=== PATIENT | male | born 1995 | race American Indian/Alaskan Native ===

== ENCOUNTER 2017-11-10 00:37 | Emergency (ER) | payer SELFPAY ==
[2017-11-10 01:07] VITALS: BP 131/84
[2017-11-10] MEDS ORDERED: NACL 0.9% 500 ML IR ONE (04:21)
[2017-11-10] MEDS ORDERED: DELTASONE PO ONE (07:39)
--- NOTE | 2017-11-10 07:41 | Emergency Department Report ---
HPI - General Chief Complaint: Upper Respiratory Infection Time Seen by Provider: 11/10/17 07:35 - HPI HPI: A 21-year-old male with no prior medical history presents to ED complaining of feeling sick for the past 3-4 days. Patient states he has sore throat. Patient states he is able to eat and swallow really without any problems. 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 Patient denies fever/cough/runny nose/abdominal pain/chest pain/ shortness of breath or any other problems. ED Past Medical Hx - Past Medical History Previous Medical History?: Yes Hx Psychiatric Treatment: Yes (Bipolar, ADHD) - Surgical History Past Surgical History?: No - Social History Smoking Status: Never Smoker Substance Use Type: None - Medications Home Medications: Home Medications Medication Instructions Recorded Confirmed Last Taken Type Acetaminophen/Codeine [Tylenol #3] 1 tab PO Q6H PRN #14 tab 03/11/14 Unknown Rx Azithromycin [Zithromax Z-GLADIS] 250 mg PO DAILY #6 tablet 03/11/14 Unknown Rx predniSONE [Deltasone] 50 mg PO QDAY #3 tab 03/11/14 Unknown Rx Ibuprofen [Motrin] 800 mg PO Q8HR PRN #30 tablet 11/10/17 Unknown Rx ED Review of Systems ROS: Stated complaint: COLD SX Other details as noted in HPI Constitutional: denies: chills, fever Eyes: denies: eye pain, eye discharge, vision change ENT: denies: ear pain, throat pain Respiratory: denies: cough, shortness of breath, wheezing Cardiovascular: denies: chest pain, palpitations Endocrine: no symptoms reported Gastrointestinal: vomiting (2 episodes yesterday, ). denies: abdominal pain, nausea, diarrhea Genitourinary: denies: urgency, dysuria, frequency, hematuria, discharge Musculoskeletal: denies: back pain, joint swelling, arthralgia, myalgia Skin: denies: rash, lesions, pruritus Neurological: denies: headache, weakness, numbness, paresthesias, confusion Psychiatric: denies: anxiety, depression Hematological/Lymphatic: denies: easy bleeding, easy bruising Physical Exam - Physical Exam Vital Signs: Vital Signs 11/10/17 01:02 Temperature 97.8 F Pulse Rate 73 Respiratory 16 Rate Blood Pressure 131/84 O2 Sat by Pulse 98 Oximetry Physical Exam: GENERAL: Alert and oriented x3, no apparent distress, Normal Gait, atraumatic. HEAD: Head is normocephalic and a-traumatic. EYES: Extra ocular muscles are intact. Pupils are equal, round, and reactive to light and accommodation. EARS: symetrical, atraumatic, non tender, ear canal clear and moderate cerumen, tympanic membrance non inflamed. gross auditory nml bilaterally. NOSE: Nose symetrical, Nontender,Nares appeared normal. MOUTH:Mouth is well hydrated and without lesions. Tonsils nonerythematous or swollen, Uvula midline, Tongue not elevated. Mucous membranes are moist. Posterior pharynx clear, no exudate or lesions. Patent airways. NECK: Supple. Non edematous, No lymphadenopathy or thyromegaly. No C-spine tenderness LUNGS: Symetrical with respiration, No wheezing, no rales or crackles, CTAB. HEART: S1, S2 present, regular rate and rhythm without murmur, no rubs, no gallops. Non tender to palpation NEUROLOGIC: The patient is cooperative with no focal neurologic deficits. . Normal speech. Normal sensation in bilateral upper and lower extremities, No loss of sensation, SKIN: Warm and dry, No lesions, No ulceration or induration present. ED Course Vital Signs 11/10/17 01:02 Temperature 97.8 F Pulse Rate 73 Respiratory 16 Rate Blood Pressure 131/84 O2 Sat by Pulse 98 Oximetry ED Medical Decision Making - Medical Decision Making 21-year-old male presents with flulike symptoms. no fever during the ED stay. Discussed with symptomatic relief with [id number] medications. Discussed continue Tylenol and Motrin as needed for fever and pain. Discussed increase fluids and diet intake. Discussed rest much needed. Discussed daily vitamin C for immune booster. Discussed follow-up with senior programmer in 3-5 days. Patient's mother verbally states she understands and will comply the following instructions and follow-up Vital signs stable. Patient is in no acute distress Critical care attestation.: If time is entered above; I have spent that time in minutes in the direct care of this critically ill patient, excluding procedure time. ED Disposition Clinical Impression: URI (upper respiratory infection) Qualifiers: URI type: unspecified URI Qualified Code(s): J06.9 - Acute upper respiratory infection, unspecified Disposition: DC-01 TO HOME OR SELFCARE Is pt being admited?: No Does the pt Need Aspirin: No Condition: Stable Instructions: Upper Respiratory Infection (ED) Additional Instructions: Make sure to follow up with the primary care physician as discussed. Take all your medications as you've been prescribed. If you have any worsening symptoms or develop new symptoms please return to ED immediately. Get some appropriate rashes. Make sure keep hydrated, increase fluids. Prescriptions: Ibuprofen [Motrin] 800 mg PO Q8HR PRN #30 tablet PRN Reason: Pain Referrals: PRIMARY CARE,MD [Primary Care Provider] - 3-5 Days [facility] [Outside] - 3-5 Days [facility] [Outside] - 3-5 Days Forms: Work/School Release Form(ED) Time of Disposition: 07:41
== END 2017-11-10 07:56 | disposition home or self-care (01) ==
LOC: ED 00:37
DX: J06.9 Acute upper respiratory infection, unspecified (principal)
CPT/HCPCS: 99282; J7512

== ENCOUNTER 2018-02-05 20:52 | Emergency (ER) | payer SELFPAY ==
[2018-02-05 21:23] VITALS: BP 138/76
== END 2018-02-06 03:31 | disposition left against medical advice (07) ==
LOC: ED 20:52
DX: R50.9 Fever, unspecified (principal); H57.8 Other specified disorders of eye and adnexa; Z53.21 Procedure and treatment not carried out due to patient leaving prior to being seen by health care provider

== ENCOUNTER 2018-03-26 23:10 | Emergency (ER) | payer SELFPAY ==
[2018-03-27 02:54] LABS: Basophils % (Auto) 0.3 % (0.0-1.8); Eosinophils # (Auto) 0.2 K/mm3 (0.0-0.4); Eosinophils % (Auto) 2.5 % (0.0-4.3); Hemoglobin 14.7 gm/dl (11.8-15.2); Lymphocytes # (Auto) 2.7 K/mm3 (1.2-5.4); Lymphocytes % (Auto) 28.3 % (13.4-35.0); Mean Corpuscular HGB Conc 35 % (32-34); Mean Corpuscular Hemoglobin 30 pg (28-32); Mean Corpuscular Volume 87 fl (84-94); Monocytes # (Auto) 0.7 K/mm3 (0.0-0.8); Monocytes % (Auto) 7.1 % (0.0-7.3); Platelet Count 228 K/mm3 (140-440); Red Blood Count 4.84 M/mm3 (3.65-5.03); Red Cell Distribution Width 13.4 % (13.2-15.2)
[2018-03-27 03:02] LABS: BUN/Creatinine Ratio 18; Blood Urea Nitrogen 16 mg/dL (9-20); Calcium 9.2 mg/dL (8.4-10.2); Hemolysis Index 7
--- NOTE | 2018-03-27 10:21 | Emergency Department Report ---
ED Abdominal Pain HPI - General Chief Complaint: Abdominal Pain Stated Complaint: CONSTIPATION,BLOOD IN STOOL Time Seen by Provider: 03/27/18 10:12 Source: patient Mode of arrival: Ambulatory Limitations: No Limitations - History of Present Illness Initial Comments: Patient is 22 years old male with no significant past medical history. Patient presented to the ER complaining off abdominal pain crampy in nature associated with constipation and sometimes diarrhea. He stated that he will have some blood sometimes and the stool. Patient denied any fever, nausea or vomiting. Patient denied any loss of weight. No other complaint. MD Complaint: abdominal pain -: week(s) Location: diffuse Radiation: none Migration to: no migration Severity: moderate Severity scale (0 -10): 5 Quality: cramping Associated Symptoms: denies other symptoms - Related Data Previous Rx's Medication Instructions Recorded Last Taken Type Acetaminophen/Codeine [Tylenol #3] 1 tab PO Q6H PRN #14 tab 03/11/14 Unknown Rx Azithromycin [Zithromax Z-GLADIS] 250 mg PO DAILY #6 tablet 03/11/14 Unknown Rx predniSONE [Deltasone] 50 mg PO QDAY #3 tab 03/11/14 Unknown Rx Ibuprofen [Motrin] 800 mg PO Q8HR PRN #30 tablet 11/10/17 Unknown Rx Allergies Allergy/AdvReac Type Severity Reaction Status Date / Time Penicillins Allergy Vomiting Verified 03/11/14 12:04 ED Review of Systems ROS: Stated complaint: CONSTIPATION,BLOOD IN STOOL Other details as noted in HPI Comment: All other systems reviewed and negative Constitutional: denies: chills, fever Respiratory: denies: shortness of breath Cardiovascular: denies: chest pain, palpitations, dyspnea on exertion Gastrointestinal: abdominal pain. denies: nausea, vomiting, diarrhea, constipation, hematemesis, melena, hematochezia Neurological: denies: headache, weakness, numbness, paresthesias, confusion, abnormal gait ED Past Medical Hx - Past Medical History Hx Psychiatric Treatment: Yes (Bipolar, ADHD) Additional medical history: Chronic episodes of diarrhea and constipation since age 12. - Surgical History Past Surgical History?: No - Social History Smoking Status: Never Smoker Substance Use Type: None - Medications Home Medications: Home Medications Medication Instructions Recorded Confirmed Last Taken Type Acetaminophen/Codeine [Tylenol #3] 1 tab PO Q6H PRN #14 tab 03/11/14 Unknown Rx Azithromycin [Zithromax Z-GLADIS] 250 mg PO DAILY #6 tablet 03/11/14 Unknown Rx predniSONE [Deltasone] 50 mg PO QDAY #3 tab 03/11/14 Unknown Rx Ibuprofen [Motrin] 800 mg PO Q8HR PRN #30 tablet 11/10/17 Unknown Rx ED Physical Exam - General Limitations: No Limitations General appearance: alert, in no apparent distress - Head Head exam: Present: atraumatic, normocephalic, normal inspection - Eye Eye exam: Present: normal appearance, PERRL. Absent: scleral icterus - ENT ENT exam: Present: normal exam, normal orophraynx, mucous membranes moist, TM's normal bilaterally - Neck Neck exam: Present: normal inspection - Respiratory Respiratory exam: Present: normal lung sounds bilaterally. Absent: respiratory distress, wheezes, rales, rhonchi, chest wall tenderness, accessory muscle use, decreased breath sounds, prolonged expiratory - Cardiovascular Cardiovascular Exam: Present: regular rate, normal rhythm, normal heart sounds - GI/Abdominal GI/Abdominal exam: Present: soft, normal bowel sounds. Absent: distended, tenderness, guarding, rebound, rigid, organomegaly, mass, bruit, pulsatile mass , hernia - Extremities Exam Extremities exam: Present: normal inspection, full ROM, normal capillary refill - Back Exam Back exam: Present: normal inspection, full ROM. Absent: tenderness, CVA tenderness (R), CVA tenderness (L), muscle spasm, paraspinal tenderness, vertebral tenderness - Neurological Exam Neurological exam: Present: alert, oriented X3, CN II-XII intact, normal gait - Skin Skin exam: Present: warm, intact, normal color ED Course Vital Signs 03/26/18 03/27/18 03/27/18 23:29 02:20 05:22 Temperature 98.1 F 98.1 F 97.6 F Pulse Rate 74 71 62 Respiratory 18 18 18 Rate Blood Pressure 117/74 117/74 120/77 O2 Sat by Pulse 97 98 100 Oximetry ED Medical Decision Making - Lab Data Result diagrams: 03/27/18 02:38 03/27/18 02:38 - Radiology Data Radiology results: report reviewed Acute abdomen x-rays showed no acute finding. - Medical Decision Making I discussed with the patient the possibility of inflammatory bowel disease given the history that he presented with. I advised him to follow-up with primary care physician for possible GI referral. Patient understood the instructions very well and he stated that he will follow up as a primary care physician. Critical care attestation.: If time is entered above; I have spent that time in minutes in the direct care of this critically ill patient, excluding procedure time. ED Disposition Clinical Impression: Abdominal pain, GI bleed Disposition: - TO HOME OR SELFCARE Is pt being admited?: No Condition: Stable Instructions: Abdominal Pain (ED), Rectal Bleeding (ED) Referrals: FABRICE DOMINGO MD [Staff Physician] - 3-5 Days
[2018-03-27 10:46] VITALS: BP 135/93
--- NOTE | 2018-03-28 14:29 | XRay Report ---
FINAL REPORT PROCEDURE: XR ABDOMEN 2V TECHNIQUE: Abdominal series, including supine and upright AP views. HISTORY: constipation COMPARISON: No prior studies are available for comparison. FINDINGS: Bowel gas pattern:Nonobstructive . Masses or calcifications:None . Bony structures:No significant abnormality . Pneumoperitoneum:None . Other:No significant findings . IMPRESSION: No acute abnormality.
== END 2018-03-27 10:48 | disposition home or self-care (01) ==
LOC: ED 23:10
DX: K92.2 Gastrointestinal hemorrhage, unspecified (principal); F31.9 Bipolar disorder, unspecified; Z88.0 Allergy status to penicillin
CPT/HCPCS: 36415; 74019; 80048; 85025

== ENCOUNTER 2018-05-01 21:25 | Emergency (ER) | payer OTHER ==
[2018-05-01] MEDS ORDERED: ZOFRAN ONE (21:46)
[2018-05-01] MEDS ORDERED: ZOFRAN IV ONE (22:31)
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
[2018-05-02 00:41] VITALS: BP 120/80
== END 2018-05-02 01:40 | disposition other institution (70) ==
LOC: ED 21:25
DX: S02.81XA Fracture of other specified skull and facial bones, right side, initial encounter for closed fracture (principal); S06.300A Unspecified focal traumatic brain injury without loss of consciousness, initial encounter; F31.9 Bipolar disorder, unspecified; Z88.0 Allergy status to penicillin; Y04.0XXA Assault by unarmed brawl or fight, initial encounter; Y93.89 Activity, other specified; Y92.89 Other specified places as the place of occurrence of the external cause; Y99.8 Other external cause status
CPT/HCPCS: 70450; 70486; 96374; 99291; J2405

== ENCOUNTER 2020-04-02 02:44 | Emergency (ER) | payer SELFPAY ==
[2020-04-02 02:55] VITALS: BP 150/90
== END 2020-04-02 03:57 | disposition left against medical advice (07) ==
LOC: ED 02:44
DX: R30.0 Dysuria (principal); R36.9 Urethral discharge, unspecified
CPT/HCPCS: 99282

== ENCOUNTER 2021-02-20 15:40 | Emergency (ER) | payer SELFPAY ==
[2021-02-20 16:09] VITALS: BP 132/81
--- NOTE | 2021-02-20 17:15 | Emergency Department Report ---
ED ENT HPI - General Chief complaint: Sore Throat Stated complaint: SORE THROAT, NASAL ISSUES Time Seen by Provider: 02/20/21 16:15 Source: patient Mode of arrival: Ambulatory Limitations: No Limitations - History of Present Illness Initial comments: This is a 25-year-old male nontoxic, well nourished in appearance, no acute signs of distress presents to the ED with c/o of sore throat, nasal congestion, rhinorrhea and frontal sinus pain times several days. Patient describes sore throat as swallowing razer blades. Patient denies any fever, chills, headache, stiff neck, nausea, vomiting, chest pain, shortness of breath, numbness or tingling. Patient denies any drooling or hoarseness. Patient stated allergies to penicillin. Denies any significant past medical history. MD complaint: sore throat, other (Rhinorrhea, nasal congestion, sinus pain) -: days(s) Location: throat Severity: mild Severity scale (0 -10): 8 Quality: aching Consistency: constant Improves with: none Worsens with: swallowing Associated Symptoms: pain with swallowing, sore throat. denies: fever, cough, gum swelling, toothache, tinnitus, hearing loss, discharge from ear, rhinorrhea - Related Data Previous Rx's Medication Instructions Recorded Last Taken Type Azithromycin [Zithromax Z-GLADIS] 250 mg PO DAILY #6 tablet 02/20/21 Unknown Rx Fluticasone Furoate [Flonase 15.8 ml NS DAILY #1 spray.susp 02/20/21 Unknown Rx Sensimist] Loratadine [Claritin] 10 mg PO DAILY #30 tablet 02/20/21 Unknown Rx Allergies Allergy/AdvReac Type Severity Reaction Status Date / Time Penicillins Allergy Vomiting Verified 03/11/14 12:04 ED Dental HPI - General Chief complaint: Sore Throat Stated complaint: SORE THROAT, NASAL ISSUES Time Seen by Provider: 02/20/21 16:15 Source: patient Mode of arrival: Ambulatory Limitations: No Limitations - Related Data Previous Rx's Medication Instructions Recorded Last Taken Type Azithromycin [Zithromax Z-GLADIS] 250 mg PO DAILY #6 tablet 02/20/21 Unknown Rx Fluticasone Furoate [Flonase 15.8 ml NS DAILY #1 spray.susp 02/20/21 Unknown Rx Sensimist] Loratadine [Claritin] 10 mg PO DAILY #30 tablet 02/20/21 Unknown Rx Allergies Allergy/AdvReac Type Severity Reaction Status Date / Time Penicillins Allergy Vomiting Verified 03/11/14 12:04 ED Review of Systems ROS: Stated complaint: SORE THROAT, NASAL ISSUES Other details as noted in HPI Comment: All other systems reviewed and negative Constitutional: denies: chills, fever Eyes: denies: eye pain, eye discharge, vision change ENT: throat pain, congestion. denies: ear pain, dental pain, hearing loss, epistaxis Respiratory: denies: cough, shortness of breath, wheezing Cardiovascular: denies: chest pain, palpitations Endocrine: no symptoms reported Gastrointestinal: denies: abdominal pain, nausea, diarrhea Genitourinary: denies: urgency, dysuria Musculoskeletal: denies: back pain, joint swelling, arthralgia Skin: denies: rash, lesions Neurological: denies: headache, weakness, paresthesias Psychiatric: denies: anxiety, depression Hematological/Lymphatic: denies: easy bleeding, easy bruising ED Past Medical Hx - Past Medical History Previous Medical History?: Yes Hx Psychiatric Treatment: Yes (Bipolar, ADHD) Additional medical history: Chronic episodes of diarrhea and constipation since age 12. - Social History Smoking Status: Current Every Day Smoker Substance Use Type: Alcohol - Medications Home Medications: Home Medications Medication Instructions Recorded Confirmed Last Taken Type Azithromycin [Zithromax Z-GLADIS] 250 mg PO DAILY #6 tablet 02/20/21 Unknown Rx Fluticasone Furoate [Flonase 15.8 ml NS DAILY #1 spray.susp 02/20/21 Unknown Rx Sensimist] Loratadine [Claritin] 10 mg PO DAILY #30 tablet 02/20/21 Unknown Rx ED Physical Exam - General Limitations: No Limitations General appearance: alert, in no apparent distress - Head Head exam: Present: atraumatic, normocephalic - Eye Eye exam: Present: normal appearance - Expanded ENT Exam Expanded Ear exam: Present: normal external inspection Mouth exam: Present: normal external inspection, tongue normal. Absent: drooling, trismus, muffled voice Teeth exam: Present: normal inspection Throat exam: Positive: tonsillar erythema, tonsillomegaly (2+), other (Uvula midline). Negative: tonsillar exudate, R peritonsillar mass, L peritonsillar mass - Neck Neck exam: Present: normal inspection, full ROM. Absent: tenderness, meningismus, lymphadenopathy - Respiratory Respiratory exam: Present: normal lung sounds bilaterally. Absent: respiratory distress, wheezes, rales, rhonchi, stridor, chest wall tenderness, accessory muscle use, decreased breath sounds, prolonged expiratory - Cardiovascular Cardiovascular Exam: Present: regular rate, normal rhythm, normal heart sounds. Absent: bradycardia, tachycardia, irregular rhythm, systolic murmur, diastolic murmur, rubs, gallop - Extremities Exam Extremities exam: Present: full ROM - Back Exam Back exam: Present: full ROM - Neurological Exam Neurological exam: Present: alert, oriented X3, normal gait - Psychiatric Psychiatric exam: Present: normal affect, normal mood - Skin Skin exam: Present: warm, dry, intact, normal color. Absent: rash - Other Other exam information: Positive sinus tenderness ED Course Vital Signs 02/20/21 16:04 Temperature 98.4 F Pulse Rate 74 Respiratory 18 Rate Blood Pressure 132/81 [Right] O2 Sat by Pulse 97 Oximetry - Reevaluation(s) Reevaluation #1: 02/20/21 17:14 Patient is speaking in full sentences with no signs of distress noted. ED Medical Decision Making - Medical Decision Making Patient stable and was examined by me. Vital signs are stable. Patient will be discharged with Z-Gladis due to sinusitis and pharyngitis. Patient was instructed to follow-up with a primary care doctor in 3-5 days or if symptoms worsen and continue return to emergency room as soon as possible. At time of discharge, the patient does not seem toxic or ill in appearance. No acute signs of distress noted. Patient agrees to discharge treatment plan of care. No further questions noted by the patient. Critical care attestation.: If time is entered above; I have spent that time in minutes in the direct care of this critically ill patient, excluding procedure time. ED Disposition Clinical Impression: Tonsillitis Sinusitis Qualifiers: Sinusitis location: frontal Chronicity: acute Recurrence: non-recurrent Qualified Code(s): J01.10 - Acute frontal sinusitis, unspecified Acute pharyngitis Qualifiers: Pharyngitis/tonsillitis etiology: unspecified etiology Qualified Code(s): J02.9 - Acute pharyngitis, unspecified Disposition: TO HOME OR SELFCARE Is pt being admited?: No Does the pt Need Aspirin: No Condition: Stable Instructions: Tonsillitis Additional Instructions: Follow-up with a primary care doctor in 3-5 days or if symptoms worsen and continue return to emergency room as soon as possible. Prescriptions: Loratadine [Claritin] 10 mg PO DAILY #30 tablet Fluticasone Furoate [Flonase Sensimist] 15.8 ml NS DAILY #1 spray.susp Azithromycin [Zithromax Z-GLADIS] 250 mg PO DAILY #6 tablet Referrals: PRIMARY MD LUIS [Primary Care Provider] - 3-5 Days RAY NAVAS MD [Staff Physician] - 3-5 Days Forms: Work/School Release Form(ED) Time of Disposition: 17:16
== END 2021-02-20 17:16 | disposition home or self-care (01) ==
LOC: ED 15:40
DX: J03.90 Acute tonsillitis, unspecified (principal); J32.8 Other chronic sinusitis; F31.9 Bipolar disorder, unspecified; F17.200 Nicotine dependence, unspecified, uncomplicated; Z79.899 Other long term (current) drug therapy
CPT/HCPCS: 99281

== ENCOUNTER 2021-09-26 12:14 | Emergency (ER) | payer SELFPAY ==
[2021-09-26 15:28] LABS: Basophils % (Auto) 0.5 % (0.0-1.8); Eosinophils # (Auto) 0.2 K/mm3 (0.0-0.4); Eosinophils % (Auto) 2.1 % (0.0-4.3); Hematocrit 48.6 % (35.5-45.6); Hemoglobin 15.8 gm/dl (11.8-15.2); Lymphocytes # (Auto) 1.9 K/mm3 (1.2-5.4); Lymphocytes % (Auto) 24.1 % (13.4-35.0); Mean Corpuscular HGB Conc 33 % (32-34); Mean Corpuscular Volume 90 fl (84-94); Monocytes # (Auto) 0.5 K/mm3 (0.0-0.8); Monocytes % (Auto) 6.7 % (0.0-7.3); Platelet Count 275 K/mm3 (140-440); Red Cell Distribution Width 13.5 % (13.2-15.2)
[2021-09-26 15:46] LABS: BUN/Creatinine Ratio 16; Blood Urea Nitrogen 13 mg/dL (9-20); Calcium 9.2 mg/dL (8.4-10.2); Hemolysis Index 63
--- NOTE | 2021-09-26 16:42 | Emergency Department Report ---
HPI - General Chief Complaint: Psych Time Seen by Provider: 09/26/21 14:10 - HPI HPI: This is a 25-year-old -[place] male presents to the emergency department via EMS with complaint of suicidal ideations and depression. Patient was on the railing of his third floor apartment [place] with the intent of jumping off in order to kill himself. He says that the risk manager of the apartment complex was talking to him and "I blacked out and she got me inside." The patient admits to history of bipolar disorder and says that he has been depressed lately as he recently missed work and may lose his job, his mother lives in another city, and his sister is not answering his phone calls. Patient says that he has not been on medication for about 6 years. He also has a history of ADHD. He denies any auditory visual hallucinations, or any homicidal ideations. ED Past Medical Hx - Past Medical History Previous Medical History?: Yes Hx Psychiatric Treatment: Yes (Bipolar, ADHD) Additional medical history: Chronic episodes of diarrhea and constipation since age 12. - Social History Smoking Status: Current Every Day Smoker Substance Use Type: Alcohol - Medications Home Medications: Home Medications Medication Instructions Recorded Confirmed Last Taken Type Azithromycin [Zithromax Z-GLADIS] 250 mg PO DAILY #6 tablet 02/20/21 Unknown Rx Fluticasone Furoate [Flonase 15.8 ml NS DAILY #1 spray.susp 02/20/21 Unknown Rx Sensimist] Loratadine [Claritin] 10 mg PO DAILY #30 tablet 02/20/21 Unknown Rx ED Review of Systems ROS: Stated complaint: SI Other details as noted in HPI Comment: All other systems reviewed and negative Constitutional: denies: chills, fever Eyes: denies: eye pain, vision change Respiratory: denies: cough, shortness of breath Cardiovascular: denies: chest pain, palpitations Gastrointestinal: denies: abdominal pain, vomiting Musculoskeletal: denies: back pain, arthralgia Neurological: denies: headache, weakness Psychiatric: depression, suicidal thoughts. denies: auditory hallucinations, visual hallucinations, homicidal thoughts Physical Exam - Physical Exam Vital Signs: Vital Signs 09/26/21 12:15 Temperature 98.3 F Pulse Rate 84 Respiratory 16 Rate Blood Pressure 129/74 [Left] O2 Sat by Pulse 98 Oximetry Physical Exam: GENERAL: The patient is well-developed well-nourished. HENT: Normocephalic. Atraumatic. Patient has moist mucous membranes. EYES: Extraocular motions are intact. NECK: Supple. Trachea is midline. CHEST/LUNGS: Clear to auscultation. There is no respiratory distress noted. HEART/CARDIOVASCULAR: Regular. There is no tachycardia. There is no murmur. ABDOMEN: Abdomen is soft, nontender. Patient has normal bowel sounds. SKIN: Skin is warm and dry. NEURO: The patient is awake, alert, and oriented. The patient is cooperative. Normal speech. MUSCULOSKELETAL: There is no tenderness or deformity. There is no limitation range of motion. ED Course Vital Signs 09/26/21 12:15 Temperature 98.3 F Pulse Rate 84 Respiratory 16 Rate Blood Pressure 129/74 [Left] O2 Sat by Pulse 98 Oximetry ED Medical Decision Making - Lab Data Result diagrams: 09/26/21 14:42 09/26/21 14:42 Lab Results 09/26/21 09/26/21 09/26/21 Range/Units 14:42 14:42 14:42 WBC 7.8 (4.5-11.0) K/mm3 RBC 5.40 H (3.65-5.03) M/mm3 Hgb 15.8 H (11.8-15.2) gm/dl Hct 48.6 H (35.5-45.6) % MCV 90 (84-94) fl MCH 29 (28-32) pg MCHC 33 (32-34) % RDW 13.5 (13.2-15.2) % Plt Count 275 (140-440) K/mm3 Lymph % (Auto) 24.1 (13.4-35.0) % [place] % (Auto) 6.7 (0.0-7.3) % Eos % (Auto) 2.1 (0.0-4.3) % Baso % (Auto) 0.5 (0.0-1.8) % Lymph # (Auto) 1.9 (1.2-5.4) K/mm3 [place] # (Auto) 0.5 (0.0-0.8) K/mm3 Eos # (Auto) 0.2 (0.0-0.4) K/mm3 Baso # (Auto) 0.0 (0.0-0.1) K/mm3 Seg Neutrophils % 66.6 (40.0-70.0) % Seg Neutrophils # 5.2 (1.8-7.7) K/mm3 Sodium 141 (137-145) mmol/L Potassium 4.7 (3.6-5.0) mmol/L Chloride 105.5 (98-107) mmol/L Carbon Dioxide 21 L (22-30) mmol/L Anion Gap 19 mmol/L BUN 13 (9-20) mg/dL Creatinine 0.8 (0.8-1.3) mg/dL Estimated GFR > 60 ml/min BUN/Creatinine Ratio 16 % Glucose 87 (75-100) mg/dL Calcium 9.2 (8.4-10.2) mg/dL Urine Color (Yellow) Urine Turbidity (Clear) Urine pH (5.0-7.0) Ur Specific [place] (1.003-1.030) Urine Protein (Negative) mg/dL Urine Glucose (UA) (Negative) mg/dL Urine Ketones (Negative) mg/dL Urine Blood (Negative) Urine Nitrite (Negative) Urine Bilirubin (Negative) Urine Urobilinogen (<2.0) mg/dL Ur Leukocyte Esterase (Negative) Urine WBC (Auto) (0.0-6.0) /HPF Urine RBC (Auto) (0.0-6.0) /HPF U Epithel Cells (Auto) (0-13.0) /HPF Urine Mucus /HPF Urine Opiates Screen Urine Methadone Screen Ur Barbiturates Screen Ur Phencyclidine Scrn Ur Amphetamines Screen U Benzodiazepines Scrn Urine Cocaine Screen U Marijuana (THC) Screen Drugs of Abuse Note Plasma/Serum Alcohol < 0.01 (0-0.07) % 09/26/21 09/26/21 Range/Units Unknown Unknown WBC (4.5-11.0) K/mm3 RBC (3.65-5.03) M/mm3 Hgb (11.8-15.2) gm/dl Hct (35.5-45.6) % MCV (84-94) fl MCH (28-32) pg MCHC (32-34) % RDW (13.2-15.2) % Plt Count (140-440) K/mm3 Lymph % (Auto) (13.4-35.0) % [place] % (Auto) (0.0-7.3) % Eos % (Auto) (0.0-4.3) % Baso % (Auto) (0.0-1.8) % Lymph # (Auto) (1.2-5.4) K/mm3 [place] # (Auto) (0.0-0.8) K/mm3 Eos # (Auto) (0.0-0.4) K/mm3 Baso # (Auto) (0.0-0.1) K/mm3 Seg Neutrophils % (40.0-70.0) % Seg Neutrophils # (1.8-7.7) K/mm3 Sodium (137-145) mmol/L Potassium (3.6-5.0) mmol/L Chloride (98-107) mmol/L Carbon Dioxide (22-30) mmol/L Anion Gap mmol/L BUN (9-20) mg/dL Creatinine (0.8-1.3) mg/dL Estimated GFR ml/min BUN/Creatinine Ratio % Glucose (75-100) mg/dL Calcium (8.4-10.2) mg/dL Urine Color Yellow (Yellow) Urine Turbidity Clear (Clear) Urine pH 5.0 (5.0-7.0) Ur Specific [place] 1.024 (1.003-1.030) Urine Protein <15 mg/dl (Negative) mg/dL Urine Glucose (UA) Neg (Negative) mg/dL Urine Ketones Neg (Negative) mg/dL Urine Blood Sm (Negative) Urine Nitrite Neg (Negative) Urine Bilirubin Neg (Negative) Urine Urobilinogen < 2.0 (<2.0) mg/dL Ur Leukocyte Esterase Tr (Negative) Urine WBC (Auto) 38.0 H (0.0-6.0) /HPF Urine RBC (Auto) 5.0 (0.0-6.0) /HPF U Epithel Cells (Auto) 7.0 (0-13.0) /HPF Urine Mucus 3+ /HPF Urine Opiates Screen Negative Urine Methadone Screen Negative Ur Barbiturates Screen Negative Ur Phencyclidine Scrn Negative Ur Amphetamines Screen Negative U Benzodiazepines Scrn Negative Urine Cocaine Screen Negative U Marijuana (THC) Screen Positive Drugs of Abuse Note Disclamer Plasma/Serum Alcohol (0-0.07) % - Medical Decision Making This patient presents to the emergency department for a mental health evaluat ion. He has suicidal ideations and had climbed out on his balcony in an attempt to jump to his . He was either talked out of it or had some "black out" and ended up safely inside and was brought in by EMS. The patient was placed on a 1013 and an ED hold. Patient's labs have been mostly unremarkable except for a urinary tract infection with about 37 WBCs, and a UDS positive for marijuana. Vital signs reassuring throughout his ED course. The patient is medically cleared for psychiatric placement. Critical Care Time: No Critical care attestation.: If time is entered above; I have spent that time in minutes in the direct care of this critically ill patient, excluding procedure time. ED Disposition Clinical Impression: Suicidal ideations Depression Qualifiers: Depression Type: unspecified Qualified Code(s): F32.A - Depression, unspecified UTI (urinary tract infection) Qualifiers: Urinary tract infection type: acute cystitis Hematuria presence: without hematuria Qualified Code(s): N30.00 - Acute cystitis without hematuria Disposition: [address] [place] [address] Is pt being admited?: No Condition: Stable
[2021-09-26 17:23] LABS: Amphetamine Screen,Urine Negative; Benzodiazepines Screen,Urine Negative; Cocaine Screen,Urine Negative; Methadone Screen,Urine Negative; Opiate Screen,Urine Negative
[2021-09-26 17:24] LABS: Bilirubin,Urine NEG (Negative); Blood,Urine SM (Negative); Color,Urine Yellow (Yellow); Mucus,Urine 3+ /HPF; Protein,Urine <15 mg/dL mg/dL (Negative); Urobilinogen,Urine < 2.0 mg/dL (<2.0)
[2021-09-26 17:40] LABS: Cannabinoid Screen,Urine Positive
--- NOTE | 2021-09-27 09:54 | Consultation ---
History of Present Illness - Reason for Consult Consult date: 09/27/21 Reason for consult: suicide attempt - History of Present Psychiatric Illness The patient was seen today. He is a/o x 3. He says he came in for depression and a suicidal attempt. The patient says he blacked out and was about to jump off the ledge of his apartments. He says the senior manager [employer] talked him out of it. The patient says "I wasn't thinking and blacked out." He says "she saved me." He is asking to go home. Although he denies suicidal thoughts at present, I informed the patient that his behaviors are too impulsive and with his depression I was recommending inpatient treatment. He was upset to hear this. The patient says he was on meds but stopped taking them because he felt better. He's unsure of what they are and states his mother handles them. The patient denies hallucinations of any kind, but states "I have sever mood swings. That's what get me." PAST PSYCHIATRIC HISTORY Diagnoses: anxiety, depression, bipolar Suicide attempts or Self-harm behavior: Denies Prior psychiatric hospitalizations: Yes Substance Abuse history: Denies Previous psychiatric medications tried: Yes Outpatient treatment: Yes PAST MEDICAL HISTORY: Family Psychiatric History: Not available SOCIAL HISTORY Marital Status: Single Living Arrangements: lives alone Employment Status: Employed Access to guns/weapons: None reported Education: History of Abuse: None reported Legal History: None reported REVIEW OF SYSTEMS Constitutional: Negative for weight loss ENT: Negative for stridor Respiratory: Negative for cough or hemoptysis All other systems reviewed and are negative MENTAL STATUS EXAMINATION General Appearance and Behavior: Age appropriate, good hygiene, wearing appropriate clothes, good eye contact, calm and cooperative. Cooperation: Participating/engaged Psychomotor Behavior: unremarkable and within normal limits Mood: depressed Affect and affective range: congruent with mood Thought Process: Goal directed Thought Content: None Speech: Normal volume, Regular rate and rhythm Suicidal Ideation: Denies Homicidal Ideation: Denies Hallucinations: Denies Impulse Control: Impaired Insight and Judgment: Poor Memory: Normal Attention: Attentive Orientation: Alert, oriented Assessment and Plan Bipolar Disorder RECOMMENDATIONS [address] 125mg po BID Zoloft 25mg po daily Doxepin 10mg po qhs sitter: per primary Medical: per primary Disposition: Recommend acute psychiatric inpatient treatment Will follow. Thanks. Case staffed with Dr. Thayer Medications and Allergies Allergies Allergy/AdvReac Type Severity Reaction Status Date / Time Penicillins Allergy Vomiting Verified 03/11/14 12:04 Home Medications Medication Instructions Recorded Confirmed Last Taken Type Azithromycin [Zithromax Z-GLADIS] 250 mg PO DAILY #6 tablet 02/20/21 Unknown Rx Fluticasone Furoate [Flonase 15.8 ml NS DAILY #1 spray.susp 02/20/21 Unknown Rx Sensimist] Loratadine [Claritin] 10 mg PO DAILY #30 tablet 02/20/21 Unknown Rx Active Meds: Active Medications Nitrofurantoin Macrocrystals (Nitrofurantoin Monohyd/M-Cryst 100 Mg Cap) 100 mg PO Q12HR SHARYN Last Admin: 09/27/21 00:00 Dose: 100 mg Documented by: Mental Status Exam - Vital signs Last Vital Signs Temp 97.6 F 09/27/21 05:40 Pulse 62 09/27/21 05:40 Resp 16 09/27/21 05:41 BP 119/75 09/27/21 05:40 Pulse Ox 99 09/27/21 08:03 Results Result Diagrams: 09/26/21 14:42 09/26/21 14:42 Abnormal lab results 09/26/21 09/26/21 09/26/21 Range/Units 14:42 14:42 Unknown RBC 5.40 H (3.65-5.03) M/mm3 Hgb 15.8 H (11.8-15.2) gm/dl Hct 48.6 H (35.5-45.6) % Carbon Dioxide 21 L (22-30) mmol/L Urine WBC (Auto) 38.0 H (0.0-6.0) /HPF All other labs normal.
--- NOTE | 2021-09-27 10:36 | Emergency Department Report ---
Blank Doc - Documentation Documentation: Patient is resting without complaint at this time. Psychiatric admission is s till In progress. We will await placement.
[2021-09-27] MEDS: NITROFURANTOIN MONOHYD/M-CRYST 100 MG CAP PO SCH ×3 (11:46→21:39)
[2021-09-27] MEDS: DIVALPROEX DR 125 MG TAB PO SCH ×2 (11:46→21:39)
[2021-09-27] MEDS: SERTRALINE 25 MG TAB PO SCH (11:47)
[2021-09-27] MEDS ORDERED: DOXEPIN 10 MG CAP PO SCH (22:00)
[2021-09-28 09:46] VITALS: BP 116/80
[2021-09-28] MEDS: DIVALPROEX DR 125 MG TAB PO SCH (10:03)
[2021-09-28] MEDS: SERTRALINE 25 MG TAB PO SCH (10:03)
[2021-09-28] MEDS: NITROFURANTOIN MONOHYD/M-CRYST 100 MG CAP PO SCH (10:03)
== END 2021-09-28 11:34 ==
LOC: ED 12:14
DX: R45.851 Suicidal ideations (principal); F32.A Depression, unspecified; N30.00 Acute cystitis without hematuria; F17.200 Nicotine dependence, unspecified, uncomplicated; Z20.822 Contact with and (suspected) exposure to COVID-19
CPT/HCPCS: 36415; 80048; 80307; 81001; 85025; 87086; 99284; U0003; 80320; G0480

== ENCOUNTER 2021-12-02 01:43 | Emergency (ER) | payer SELFPAY ==
[2021-12-02 01:49] VITALS: BP 157/98
== END 2021-12-02 03:50 | disposition left against medical advice (07) ==
LOC: ED 01:43
DX: M79.604 Pain in right leg (principal); Z53.21 Procedure and treatment not carried out due to patient leaving prior to being seen by health care provider